=== PATIENT | male | born 1985 | race Caucasian/White ===

== ENCOUNTER 2024-02-02 10:16 | Emergency (ER) | payer OTHER ==
[2024-02-02] MEDS: SODIUM CHLORIDE 0.9% 1,000 ML IV ONE (12:29)
[2024-02-02] MEDS: KETOROLAC 30 MG/ML VIAL IVP STA (12:30)
[2024-02-02 12:31] LABS: BASOPHILS # (AUTO) 0.1 10^3/uL (0.0-0.1); BASOPHILS % (AUTO) 0.9 %; EOSINOPHILS # (AUTO) 0.1 10^3/uL (0.0-0.7); EOSINOPHILS % (AUTO) 1.2 %; HCT - HEMATOCRIT 49.7 % (42.0-52.0); HGB - HEMOGLOBIN 16.3 g/dL (14.0-18.0); LYMPHOCYTES # (AUTO) 1.9 10^3/uL (1.5-3.5); LYMPHOCYTES % (AUTO) 22.6 %; MEAN CORPUSCULAR HEMOGLOBIN 28.6 pg (27.0-31.0); MEAN CORPUSCULAR HGB CONC 32.8 g/dL (32.0-36.0); MEAN CORPUSCULAR VOLUME 87.3 fL (80.0-94.0); MEAN PLATELET VOLUME 8.9 fL (7.4-11.4); MONOCYTES # (AUTO) 0.7 10^3/uL (0.0-1.0); MONOCYTES % (AUTO) 8.7 %; NEUTROPHILS # (AUTO) 5.5 10^3/uL (1.5-6.6); NEUTROPHILS % (AUTO) 66.4 %; PLT - PLATELET COUNT 275 10^3/uL (130-450); RED BLOOD COUNT 5.69 10^6/uL (4.70-6.10); RED CELL DISTRIBUTION WIDTH 12.2 % (12.0-15.0); WHITE BLOOD COUNT 8.2 x10^3/uL (4.8-10.8)
[2024-02-02] MEDS: DEXAMETHASONE 10 MG/ML VIAL IVP STA (12:33)
--- NOTE | 2024-02-02 12:40 | ED Physician Documentation ---
PD HPI HEADACHE - Stated complaint Stated Complaint: DAMIAN - Chief complaint Chief Complaint: Neuro - Additional information Additional information: 39-year-old male with history of recurrent migraines presents emergency department for migraine that has not been lasting for about 2 and 3:30 days. Patient says that he normally takes sumatriptan as well as Excedrin and says that he is normally able to get these relief but has not had any alleviation and says that the pain will spike up to an 8-10 with sharp shooting pain all over his head starting in the back of his head. No new confusion no altered mental status no neurological deficits but says that this does feel slightly different than his other migraine patterns in the past has never had a head CT no recent injuries or falls no fevers or chills no neck pain PD PAST MEDICAL HISTORY - Past Medical History Past Medical History: Yes Neuro: Migraines Derm: Psoriasis - Past Surgical History Past Surgical History: No - Present Medications Home Medications: Ambulatory Orders Medication Instructions Recorded Confirmed SUMAtriptan [Imitrex] 25 mg PO ONCE PRN 02/02/24 02/02/24 - Allergies Allergies/Adverse Reactions: Allergies Allergy/AdvReac Type Severity Reaction Status Date / Time No Known Drug Allergies Allergy Verified 02/02/24 10:35 - Social History Does the pt smoke?: No Smoking Status: Never smoker Does the pt drink ETOH?: Yes Does the pt have substance abuse?: No - Immunizations Immunizations are current?: Yes PD ED PE NORMAL - Vitals Vital signs reviewed: Yes - General General: Alert and oriented X 3, No acute distress, Well developed/nourished - HEENT HEENT: Atraumatic, PERRL, EOMI - Neck Neck: Supple, no meningeal sign - Cardiac Cardiac: RRR, No murmur, No gallop - Respiratory Respiratory: No respiratory distress, Clear bilaterally - Derm Derm: Normal color, Warm and dry, No rash - Neuro Neuro: Alert and oriented X 3, small offset printer 2-12 intact, No motor deficit, No sensory deficit, Normal speech Eye Opening: Spontaneous Motor: Obeys Commands Verbal: Oriented GCS Score: 15 - Psych Psych: Normal mood, Normal affect Results - Vitals Vitals: Vital Signs - 24 hr 02/02/24 02/02/24 10:30 14:55 Temperature 36.2 C L Heart Rate 76 73 Respiratory 16 16 Rate Blood Pressure 138/106 H 133/81 H O2 Saturation 95 100 Oxygen O2 Source Room air - Labs Labs: Laboratory Tests 02/02/24 02/02/24 12:26 12:26 WBC 8.2 RBC 5.69 Hgb 16.3 Hct 49.7 MCV 87.3 MCH 28.6 MCHC 32.8 RDW 12.2 Plt Count 275 MPV 8.9 Neut # (Auto) 5.5 Lymph # (Auto) 1.9 [place] # (Auto) 0.7 Eos # (Auto) 0.1 Baso # (Auto) 0.1 Absolute Nucleated RBC 0.00 Nucleated RBC % 0.0 Sodium 137 Potassium 4.0 Chloride 102 Carbon Dioxide 29 Anion Gap 6.0 BUN 11 Creatinine 0.9 Estimated GFR (MDRD) 94 Glucose 87 Calcium 10.0 Magnesium 1.9 Total Bilirubin 0.6 AST 22 ALT 44 Alkaline Phosphatase 51 Total Protein 7.6 Albumin 4.7 Globulin 2.9 Albumin/Globulin Ratio 1.6 Lipase 349 H - Rads (name of study) Head CT without Relevant Findings:: Final report received, EMP independent interpretation of test, Other (No acute intracranial pathology) PD Medical Decision Making - ED course ED course: 39-year-old male presents emergency department for what he describes as migraine. Given that his migraine pattern feels different this and feels like it is lingering more and he is not able to get any control of his pain with his current migraine cocktail including sumatriptan and went ahead and pursued a head CT to make sure there is no other acute intracranial abnormalities or findings. CT without con was complete no acute intracranial pathology was visualized. Labs were also complete for further evaluation and again no acute abnormalities were found in his labs aside from a quite elevated lipase at 349. Patient says that he does not drink alcohol regularly and has not any anticholesterol medications he denies any abdominal pain patient was told about these elevated findings and told to follow-up with his primary care provider for reevaluation and to have his labs rechecked in about a week. He was given a liter of IV fluids here in the ER as well as some dexamethasone and Toradol in his migraine did improve significantly. He drove himself in send no further medications were offered he was told to follow-up with his primary care provider for possible neurology referral to check in about possible reevaluation of his migraine cocktail medications. He is given ER return precautions all questions answered patient is safe for discharge at this time. Departure - Departure Disposition: 01 Home, Self Care Clinical Impression: Migraine, Elevated lipase Instructions: ED Headache Tension, ED Headache Migraine Comments: Thank you for trusting us with your care. We have completed a head CT as well as some labs and I am not seeing any obvious reasons as to why you are experiencing migraine at this time. Your lipase is slightly elevated please follow-up with your primary care provider for further evaluation of this in a week. We have given you a liter of IV fluids as well as some Toradol and steroids to help with your migraine here in the emergency department and take some Benadryl tonight if you are having a hard time falling asleep which can help with sleeping Forms: PCP List Discharge Date/Time: 02/02/24 14:55
[2024-02-02 12:46] LABS: ALBUMIN 4.7 g/dL (3.2-5.5); ALBUMIN/GLOBULIN RATIO 1.6 (1.0-2.2); BILIRUBIN,TOTAL 0.6 mg/dL (0.2-1.0); CREATININE 0.9 mg/dL (0.6-1.3); MAGNESIUM 1.9 mg/dL (1.7-2.3); TOTAL PROTEIN 7.6 g/dL (6.4-8.9)
--- NOTE | 2024-02-02 13:48 | CT Report ---
PROCEDURE: Head WO INDICATIONS: new migraine pattern TECHNIQUE: Noncontrast 4.5 mm thick angled axial sections acquired from the foramen magnum to the vertex. For r adiation dose reduction, the following was used: automated exposure control, adjustment of mA and/or kV according to patient size. COMPARISON: None. FINDINGS: Image quality: Excellent. CSF spaces: Basal cisterns are patent. No extra-axial fluid collections. Ventricles are normal in size and shape. Brain: No midline shift. No intracranial masses or hemorrhage. Haro-white matter interface is norm al. Skull and face: Calvarium and visualized facial bones are intact, without suspicious lesions. Sinuses: Visualized sinuses and mastoids are clear. IMPRESSION: No acute intracranial pathology. Reviewed by: Leno León MD on 02/02/2024 1:47 PM PDT Approved by: Leno León MD on 02/02/2024 1:47 PM PDT Station ID: [id number]
[2024-02-02 14:56] VITALS: BP 133/81; O2SAT 100
== END 2024-02-02 14:55 | disposition home or self-care (01) ==
LOC: ED 10:16
DX: G43.909 Migraine, unspecified, not intractable, without status migrainosus (principal); R74.8 Abnormal levels of other serum enzymes; Z79.899 Other long term (current) drug therapy
CPT/HCPCS: 36415; 80053; 83690; 83735; 85025; 96374; 96375; 99284

== ENCOUNTER 2024-02-25 07:57 | Outpatient (CLI) | payer OTHER ==
--- NOTE | 2024-02-25 14:58 | Ultrasound Report ---
PROCEDURE: Abdomen Limited INDICATIONS: ELEVATED LIPASE TECHNIQUE: Real-time focused scanning was performed of the abdomen, with image documentation. COMPARISONS: None. FINDINGS: Liver: Liver is normal in size and increased in echotexture. Simple cysts are present. The largest m easures 8 mm. Gallbladder: No gallstones, sludge, wall thickening or pericholecystic edema. Biliary ducts: Intrahepatic bile ducts are non-dilated. Extrahepatic bile duct caliber measures 3.6 mm. Normal is 6-7 mm or less in diameter, or 10 mm or less post-cholecystectomy. Pancreas: Visualized portions of the pancreas are sonographically normal. Right kidney: Normal in size and echotexture. Right kidney measures 10.6 cm long. No hydronephrosis or nephrolithiasis. No solid masses. No complex renal cystic lesions which require follow-up. IVC: Intrahepatic inferior vena cava is patent. Miscellaneous: No free abdominal fluid. IMPRESSION: Simple hepatic cysts. Hepatic steatosis. Reviewed by: Lucero Larsen MD on 02/25/2024 2:57 PM PDT Approved by: Lucero Larsen MD on 02/25/2024 2:57 PM PDT Station ID: [id number]
== END 2024-02-25 07:58 | disposition home or self-care (01) ==
LOC: DI 07:57
PROVIDERS: ATTEND Nurse Practitioner Family
DX: R74.8 Abnormal levels of other serum enzymes (principal); K76.89 Other specified diseases of liver; K76.0 Fatty (change of) liver, not elsewhere classified